=== PATIENT | male | born 1940 | race Caucasian/White ===

== ENCOUNTER 2016-07-10 12:54 | Outpatient (CLI) | payer MEDICARE, BC ==
[2008-03-07 06:04] VITALS: BP 133/82
[~2016-07-10] VITALS: Ht 185.4 cm; Wt 113.6 kg
[~2016-07-10 12:54] MED LIST: ALDACTONE 25MG25 M1 PO; ALEVE 220MG220 MG PO; BETAPACE 80MG80 MG PO; CEPHALEXIN500 M1 PO; FLEXERIL10 MG PO; FLOMAX 0.40.4 MG/CAP PO; GABAPENTIN300 M1 PO; HCTZ 25MG TAB25 MG PO; INDERAL60 MG PO; LASIX 40MG TABL40 MG PO; LEVAQUIN 5500 MG/TA1 PO; LIORESAL 1010 MG/TAB PO; NEURONTIN300 MG/CAP PO; NORCO 325 MG-51 TAB PO; OXY IR5 MG PO; PRADAXA 150MG150 MG PO; VALIUM 5MG T5 MG/TAB PO; VOLTAREN 50MG T50 MG PO; VOLTAREN50 MG PO; ZOFRAN ODT4 MG PO
[2016-07-10] MEDS ORDERED: NORCO 325 MG-51 TAB PO (13:38)
[2016-07-10 13:39] VITALS: BP 102/73; PULSE 63
[2016-07-10 15:20] VITALS: BP 110/83; PULSE 57
[2016-07-10 15:35] VITALS: BP 121/77; PULSE 53
[2016-07-10 15:36] VITALS: BP 110/83; PULSE 58
[2016-07-10 15:50] VITALS: BP 133/85; PULSE 47; TEMP 96.9
== END 2016-07-10 16:32 | disposition home or self-care (01) ==
LOC: COL.RAD 12:54
DX: M51.04 Intervertebral disc disorders with myelopathy, thoracic region (principal); M51.06 Intervertebral disc disorders with myelopathy, lumbar region; M48.05 Spinal stenosis, thoracolumbar region
CPT/HCPCS: Q9965

== ENCOUNTER → 2019-11-25 | Outpatient (CLI) | payer MEDICARE, BC | LOC: COL.RAD 08:27 | DX: C61 Malignant neoplasm of prostate (principal); N28.89 Other specified disorders of kidney and ureter; M47.9 Spondylosis, unspecified; Z98.890 Other specified postprocedural states | CPT/HCPCS: A9503; Q9967 ==

== ENCOUNTER → 2020-01-09 | Outpatient (CLI) | payer MEDICARE, BC | LOC: COL.RAD 09:54 | DX: N28.1 Cyst of kidney, acquired (principal); K76.9 Liver disease, unspecified; M47.816 Spondylosis without myelopathy or radiculopathy, lumbar region | CPT/HCPCS: Q9967 ==